=== PATIENT | female | born 1945 | race Caucasian/White ===

== ENCOUNTER 2019-06-28 10:30 | Day surgery (SDC) | payer OTHER, MEDICARE ==
[2019-06-21 14:58] VITALS: BMI 34.6
[2019-06-28] MEDS ORDERED: TETRACAINE 0.5% OPHTH SOLN 2 ML BOTTLE ONE ×2 (11:08→14:03)
[2019-06-28] MEDS ORDERED: NEO/POLYMYX B SULF/DEXAMETH OPHTHALMIC 5ML BOTTLE ONE (11:08)
[2019-06-28] MEDS ORDERED: POVIDONE-IODINE 5% OPHTHALMIC PREP 30 ML SOLUTION ONE (11:08)
[2019-06-28] MEDS ORDERED: BETAXOLOL HCL 0.25% OPHTHALMIC 10 ML DROPSBTL ONE (11:08)
[2019-06-28] MEDS ORDERED: BACITRACIN/POLYMYXIN OPH OINT 3.5 GM TUBE ONE (11:08)
[2019-06-28] MEDS ORDERED: EPI-SHUGARCAINE (EPINEPHRINE 0.025% & LIDOCAINE-PF 0.75%) 4ML ONE (11:08)
[2019-06-28] MEDS ORDERED: ACETAMINOPHEN 325 MG TABLET (FP) PO PRN (11:39)
[2019-06-28] MEDS: PHENYLEPHRINE 2.5% OPHTH SOLN 15 ML BOTTLE ONE ×4 (12:20→12:35)
[2019-06-28] MEDS: TROPICAMIDE 1% OPHTH SOLN 15 ML BOTTLE ONE ×4 (12:20→12:35)
[2019-06-28] MEDS: CYCLOPENTOLATE HCL 1% OPHTH SOLN 2 ML BOTTLE ONE ×4 (12:20→12:35)
[2019-06-28] MEDS: KETOROLAC TROMETHAMINE 0.5% EYE DROP 1 DROP DROPS ONE ×4 (12:20→12:35)
[2019-06-28] MEDS: OFLOXACIN 0.3% OPHTHALMIC SOLUTION 5 ML BOTTLE ONE ×4 (12:20→12:35)
[2019-06-28] MEDS ORDERED: PROPOFOL 20 ML ONE (13:53)
[2019-06-28] MEDS ORDERED: LIDOCAINE HCL/PF 2% SDV 5ML VIAL ONE (14:03)
[2019-06-28] MEDS ORDERED: LIDOCAINE HCL 2% JELLY 10 ML CARTRIDGE ONE (14:03)
[2019-06-28] MEDS ORDERED: BUPIVACAINE HCL/PF 0.5% (5MG/ML) 10 ML VIAL ONE (14:03)
[2019-06-28] MEDS ORDERED: BSS (NA/CA/MG/K) BALANCED SALT SOLUTION OPHTH SOLN 15 ML BOTTLE ONE (14:03)
[2019-06-28] MEDS ORDERED: ACETYLCHOLINE 1:100 INTRA-OCUL 20 MG/2 ML KIT ONE (14:04)
[2019-06-28 16:21] VITALS: BP 138/69; PULSE 80; TEMP 97.7
--- NOTE | 2019-06-28 16:29 | OP ---
DATE OF OPERATION: 06/28/2019 PROCEDURE: Planned extracapsular cataract extraction, phacoemulsification, insertion of posterior chamber lens implant, right eye. SURGEON: Seferino Ahmadi MD YARD HOSTLER SURGEON: Seferino Ahmadi MD ANESTHESIA: Local with standby. SCREEN MACHINE OPERATOR: Reji Corona CRNA ANESTHESIOLOGIST: Lawson Sarmiento MD COMPLICATIONS: None. PREOPERATIVE DIAGNOSIS: Cataract, right eye. POSTOPERATIVE DIAGNOSIS: Cataract, right eye. FINDINGS AND PROCEDURE: After successful peribulbar anesthesia was given to the right eye, the patient was prepped and draped in the usual manner to expose the right eye. Lid speculum was inserted. Microscope was in position over the eye. A superior fornix-based flap was then fashioned for 12 mm using Adriana scissors and 0.12 forceps and hemostasis achieved with electrocautery. Limbal grill was then fashioned for 3 mm with a crescent blade and dissecting into clear cornea. Then a 3-mm blade was used to enter the anterior chamber. Under Viscoat, 360-degree anterior capsulotomy was performed and a leaflet removed from the eye. Phacoemulsification of the entire nucleus was then done in approximately 1-1/2 minutes time followed by irrigation, aspiration of all cortical material leaving entire posterior capsule and red reflex present. Provisc was then injected to the posterior chamber to deepen the posterior capsule and the implant was inspected carefully with the microscope, found to be free of defects, debris, and flaws, and irrigated thoroughly with BSS. The implant was placed in a Provisc-filled cartridge, the cartridge in the injector, and the implant was injected into the eye such that the inferior haptic was in the inferior capsular bag, superior haptic in the superior capsular bag and rotated in a horizontal position with a Sinskey hook. Provisc was aspirated out. Replaced with Miochol, Miostat, and BSS, and the wound was closed with a single, interrupted 10 Ethilon suture and tested for leakage, and none was found. Conjunctival tenon flap was reapproximated. At this point, the implant was fixated in the capsular bag centrally located with a round pupil, entire posterior capsule, and red reflex present. Topical Betoptic S and Maxitrol ophthalmic suspensions were placed as was bacitracin, polymyxin B ophthalmic ointment. The Tegaderm strips and the specimen were removed from the lids. The lids were closed and a patch and shield placed on the eye. The patient was then discharged from the operating room to the recovery area in good condition having tolerated the procedure well. SEFERINO AHMADI M.D. [facility]RETT/[id number]
== END 2019-06-28 16:10 | disposition home or self-care (01) ==
LOC: FASU 10:30
PROVIDERS: ATTEND Ophthalmology
PROC: 08RJ3JZ Replacement of Right Lens with Synthetic Substitute, Percutaneous Approach (ICD-10-PCS; principal; 2019-06-28 14:33)
DX: H26.9 Unspecified cataract (principal)